=== PATIENT | female | born 1985 | race Caucasian/White ===

== ENCOUNTER 2016-09-16 00:46 | Inpatient (IN) | payer BC, OTHER ==
[~2016-09-16] VITALS: Ht 160 cm; Wt 128.4 kg
[2016-09-16] MEDS ORDERED: PENICILLIN G 5 MU in SODIUM CHLORIDE 0.9% 250 ML IV ONE (07:35)
[2016-09-16] MEDS ORDERED: TERBUTALINE 1 MG/ML VIAL SUBQ PRN (07:35)
[2016-09-16] MEDS ORDERED: OXYTOCIN 15 UNITS/250 ML NS 250 ML IV SCH ×2 (07:35→17:15)
[2016-09-16] MEDS ORDERED: PROMETHAZINE 25 MG/ML VIAL IV PRN (07:35)
[2016-09-16] MEDS ORDERED: CEFAZOLIN (LD/OB) 100 ML IV PRN (07:35)
[2016-09-16] MEDS ORDERED: ACETAMINOPHEN 325 MG TAB PO PRN (07:35)
[2016-09-16] MEDS ORDERED: ALU/MAG/SIM 30 ML UDC PO PRN (07:35)
[2016-09-16] MEDS ORDERED: LIDOCAINE 1% BUFFERED 1 ML SYR INTRADERM PRN (07:35)
[2016-09-16] MEDS ORDERED: FAMOTIDINE 20 MG INJ IV PRN (07:35)
[2016-09-16] MEDS ORDERED: LIDOCAINE 1% 30 ML PF INFILTRATE ONE (07:35)
[2016-09-16] MEDS ORDERED: MORPHINE 5 MG/1 ML VIAL IV PRN (07:35)
[2016-09-16] MEDS ORDERED: ONDANSETRON 4 MG VIAL IV PRN (07:35)
[2016-09-16] MEDS ORDERED: METOCLOPRAMIDE 10 MG/2 ML VIAL IV PUSH PRN (07:35)
[2016-09-16] MEDS ORDERED: LIDOCAINE/EPI 1.5% MPF 30 ML VIAL EPIDURAL ONE (07:47)
[2016-09-16] MEDS: MISOPROSTOL 25 MCG/0.25 **QUARTER TAB VAG SCH ×3 (08:27→20:00)
[2016-09-16] MEDS: LACT RINGERS 1,000 ML IV SCH ×3 (08:31→22:00)
[2016-09-16] MEDS: FAMOTIDINE 20 MG TAB PO PRN ×2 (08:36→21:37)
[2016-09-16 08:45] VITALS: BMI 50.1
[2016-09-16] MEDS: PENICILLIN G 2.5 MU in SODIUM CHLORIDE 0.9% 100 ML IV SCH ×3 (12:37→20:45)
[2016-09-16] MEDS ORDERED: OXYTOCIN 15 UNITS/250 ML NS 500 ML IV ONE (16:49)
[2016-09-16] MEDS ORDERED: ROPIV/FENT 0.2%-2MCG/ML 100 ML EPIDURAL ONE (21:58)
[2016-09-16] MEDS ORDERED: FENTANYL 100 MCG/2 ML AMP ONE (21:58)
[2016-09-16] MEDS ORDERED: LACT RINGERS 500 ML IV PRN (22:35)
[2016-09-16] MEDS ORDERED: FENTANYL 100 MCG/2 ML AMP EPIDURAL ONE (22:35)
[2016-09-16] MEDS ORDERED: LACT RINGERS 500 ML IV ONE (22:35)
[2016-09-16] MEDS ORDERED: ROPIV/FENT 0.2%-2MCG/ML 100 ML EPIDURAL SCH (22:35)
[2016-09-16] MEDS ORDERED: SODIUM CHLORIDE 0.9% 500 ML IV PRN (22:35)
[2016-09-17] VITALS (15 sets, daily range): BP systolic 110–149; RESP 18–24; TEMP 97.8–98.5
[2016-09-17] MEDS: MISOPROSTOL 25 MCG/0.25 **QUARTER TAB VAG SCH
[2016-09-17] MEDS: LACT RINGERS 1,000 ML IV SCH (00:18)
[2016-09-17] MEDS: PENICILLIN G 2.5 MU in SODIUM CHLORIDE 0.9% 100 ML IV SCH (00:19)
[2016-09-17] MEDS ORDERED: OXYTOCIN 10 UNITS/ML VIAL ONE (03:34)
[2016-09-17] MEDS ORDERED: METHYLERGONOVINE MAL 0.2 MG/ML AMP ONE (03:34)
[2016-09-17] MEDS ORDERED: CARBOPROST 250 MCG/ML AMP ONE (03:35)
[2016-09-17] MEDS ORDERED: MISOPROSTOL 100 MCG TAB ONE (03:35)
[2016-09-17] MEDS ORDERED: TDaP 0.5 ML VIAL IM.VACC ONE (03:50)
[2016-09-17] MEDS ORDERED: CARBOPROST 250 MCG/ML AMP IM ONE (03:50)
[2016-09-17] MEDS ORDERED: BISACODYL 10 MG SUPP RECTAL PRN (03:50)
[2016-09-17] MEDS ORDERED: MISOPROSTOL 200 MCG TAB VAG ONE (03:50)
[2016-09-17] MEDS ORDERED: DERMOPLAST SPRAY TOPICAL PRN (03:50)
[2016-09-17] MEDS ORDERED: ASTRINGENT MED PADS 40'S TOPICAL PRN (03:50)
[2016-09-17] MEDS ORDERED: MAG HYDROX 30 ML UDC PO PRN (03:50)
[2016-09-17] MEDS ORDERED: METHYLERGONOVINE MAL 0.2 MG/ML AMP IM ONE (03:50)
[2016-09-17] MEDS ORDERED: MEASLES,MUMPS,RUBELLA VAC SUBQ.VACC ONE (03:50)
[2016-09-17] MEDS ORDERED: ZOLPIDEM 5 MG TAB PO PRN (03:50)
[2016-09-17] MEDS: OXYTOCIN 15 UNITS/250 ML NS 250 ML IV SCH ×2 (03:57→04:20)
[2016-09-17] MEDS ORDERED: OXYTOCIN 10 UNITS/ML VIAL IV ONE (04:30)
[2016-09-17] MEDS: MISOPROSTOL 200 MCG TAB PO SCH ×2 (04:50→09:18)
[2016-09-17] MEDS: Ibuprofen 600 MG TAB PO SCH ×3 (06:42→17:41)
[2016-09-17] MEDS ORDERED: **ONLY ANESTEHSIA MAY ORDER OPIATES WHILE ON EPIDURAL XX SCH (08:00)
[2016-09-17] MEDS: DOCUSATE SOD 100 MG CAP PO SCH ×2 (09:18→21:39)
[2016-09-18] MEDS: Ibuprofen 600 MG TAB PO SCH ×4 (00:05→18:11)
[2016-09-18 01:28] VITALS: BP_SYST 113; RESP 16; TEMP 98.1
[2016-09-18 05:33] VITALS: BP_SYST 111; RESP 15; TEMP 97.9
[2016-09-18] MEDS: DOCUSATE SOD 100 MG CAP PO SCH ×2 (08:14→21:05)
[2016-09-18 09:44] VITALS: BP_SYST 110; TEMP 97.9
[2016-09-18 13:26] VITALS: BP_SYST 122; RESP 16; TEMP 97.8
[2016-09-18 13:27] VITALS: RESP 16
[2016-09-18 17:42] VITALS: BP_SYST 133; RESP 20; TEMP 98
[2016-09-19] MEDS: Ibuprofen 600 MG TAB PO SCH ×2 (00:10→06:00)
[2016-09-19 05:52] VITALS: BP_SYST 108; RESP 16; TEMP 98
[2016-09-19] MEDS: DOCUSATE SOD 100 MG CAP PO SCH (08:02)
[2016-09-19 09:34] VITALS: BP_SYST 129; RESP 18; TEMP 97.6
[2016-09-19 10:18] VITALS: BP_SYST 129; RESP 18; TEMP 97.6
== END 2016-09-19 10:53 | disposition home or self-care (01) | DRG 775 ==
LOC: LD 07:26 → OB 09-17 06:46
PROVIDERS: ADMIT Obstetrics & Gynecology; ATTEND Obstetrics & Gynecology
PROC: 10E0XZZ Delivery of Products of Conception, External Approach (ICD-10-PCS; principal; 2016-09-17)
PROC: 0W8NXZZ Division of Female Perineum, External Approach (ICD-10-PCS; 2016-09-17)
CPT/HCPCS: 82803; 85014; 85018; 85025; 86850; 86900; 86901